=== PATIENT | male | born 1970 | race African-American/Black ===

== ENCOUNTER 2017-03-12 17:31 | Emergency (ER) | payer BC ==
[~2017-03-12] VITALS: Ht 177.8 cm; Wt 65.0 kg
[2017-03-12] MEDS ORDERED: NAPROSYN500 MG PO (18:29)
[2017-03-12 18:54] VITALS: BP 163/89
== END 2017-03-12 18:54 | disposition home or self-care (01) | DRG 605 ==
LOC: ED 17:31
DX: S80.11XA Contusion of right lower leg, initial encounter (principal); R22.41 Localized swelling, mass and lump, right lower limb; W22.8XXA Striking against or struck by other objects, initial encounter; X50.1XXA Overexertion from prolonged static or awkward postures, initial encounter; Y93.H9 Activity, other involving exterior property and land maintenance, building and construction; Y92.007 Garden or yard of unspecified non-institutional (private) residence as the place of occurrence of the external cause